=== PATIENT | male | born 1955 | race Caucasian/White ===

== ENCOUNTER 2018-06-01 09:33 | Emergency (ER) | payer OTHER, SELFPAY ==
[2018-06-01 09:37] VITALS: PULSE 73; RESP 16; TEMP 36.9; O2SAT 98
--- NOTE | 2018-06-01 10:19 | ED.GENADUL_ITS ---
Disposition Clinical Impression: Head injury, acute Disposition: HOME Condition: Good Instructions: Head Injury (ED) Additional Instructions: Return immediately if you begin having any neurological changes including numbness or tingling, weakness, severe dizziness, severe headache. Otherwise you may take gucv-[id number] pain medication as needed for pain control. Please take the remainder of the day and rest and slowly advance activity tomorrow as tolerated by discomfort. Referrals: Miguel Ángel Ku [Primary Care Provider] - (Follow-up with your primary care provider as needed for reassessment or if not improving over the next week. ) Forms: Work Release Medical Decision Making - Medical Decision Making Patient presenting to the emergency department after head injury. Patient states that a spring-loaded lunchroom table released the spring and hit his head. Exam is unremarkable except for some very small abrasions to the right ear and scalp which none are deep and nonbleeding. There are no signs of skull fracture on exam and patient only states mild headache of a 1. Neurological exam shows no neurological deficits. I do not feel that head CT is warranted but it appears that patient may have come to the emergency department due to 's concern and so due to this concern patient was offered a head CT but did discuss risks versus benefit of this testing which given benign exam and incident that occurred 2 hours ago with only minimal pain I do not feel that it would reveal any abnormalities. After discussion of risks versus benefit and my recommendation patient stated that he did not want a head CT at this time. Patient was agreeable to take the rest the day off and return for any new or worsening symptoms but I feel that this is a minor head injury and that all he will need is rest and pain control with [id number]-[id number] pain medications. After discussion of diagnosis and plan of care with patient patient agreed and stated no further needs, questions, or concerns at this time. History of Present Illness - General Chief complaint: HeadInjury Stated complaint: CONCUSSION? Time Seen by Provider: 06/01/18 10:17 Source: patient, RN notes reviewed Mode of arrival: ambulatory Limitations: no limitations - History of Present Illness Initial comments: Patient reports 2 hours ago he was at work working on a folding table that the spring excellently released and folded onto his head. He states he noted some slight scrapes and bleeding to his right ear but otherwise denies any loss of consciousness, amnesia, neurological deficits. He states he feels that his bowel got round but remembers the whole event and took a couple hours to rest. Onset/Timin -: hour(s) Location: head Severity scale (1-10): 1 Quality: aching Consistency: constant Improves with: none Worsens with: none Associated Symptoms: denies other symptoms Treatments Prior to Arrival: none - Related Data Aspirin [Ecotrin] 1 tab PO DAILY tab-cap 02/21/13 Blood-Glucose Control, Normal [Onetouch Verio] 1 strip MC BID #200 each Syringe W-Cannula,Disp, 3 ml [Syringe] 1 each MC BID #60 syringe 10/06/16 Syringe W-Cannula,Disp, 3 ml [Syringe] 1 each MC BID #200 syringe 03/21/17 Glipizide [Glipizide ER] 10 mg PO DAILY #90 tab-cap 07/06/17 Insulin Glargine [Lantus Solostar] 27 - 40 u SQ HS #15 pen 07/11/17 Pen Needle, Diabetic [Pen Needle] 1 each MC DAILY #100 ndl 07/11/17 Atorvastatin [Lipitor] 1 tab PO HS #90 tab-cap 07/12/17 Lisinopril 5 mg PO DAILY #90 tab-cap 07/12/17 MetFORMIN [Glucophage] 1 tab PO BID #180 tab-cap 07/12/17 Allergies Allergy/AdvReac Type Severity Reaction Status Date / Time No Known Allergies Allergy Unverified 06/01/18 09:40 Review of Systems Constitutional: denies: malaise, weakness Eyes: denies: eye pain, eye discharge, vision change ENT: as per HPI. denies: throat pain Respiratory: denies: cough, shortness of breath Cardiovascular: denies: chest pain, palpitations, syncope Gastrointestinal: denies: abdominal pain, nausea, vomiting Musculoskeletal: denies: back pain Neurological: headache (Very mild). denies: weakness, numbness, paresthesias, confusion, abnormal gait, vertigo Past Medical History - Past Medical History Medical history: diabetes, hyperlipidemia Surgical history: non-contributory Psychiatric history: depression Family history: cancer, diabetes - Social History Smoking status: never smoker Alcohol use: rarely Drug use: none Living Situation: lives with family General Exam - General Limitations: no limitations General appearance: alert, in no apparent distress - Head Head exam: Present: normocephalic - Expanded Head Exam No standard instances Head exam: Present: abrasion (Very small, nonbleeding to right temporal and parietal). Absent: laceration, contusion, hematoma, racoon eyes, bautista's sign , general tenderness, tenderness of temporal artery, CSF rhinorrhea, CSF otorrhea - Eye Eye exam: Present: normal apperance, PERRL, EOMI. Absent: scleral icterus, conjunctival injection, nystagmus, periorbital swelling, periorbital tenderness Pupils: Present: normal accommodation - ENT ENT exam: Present: normal orophraynx, mucous membranes moist, TM's normal bilaterally. Absent: normal external ear exam (Patient has 2 small superficial abrasions to right helix and lobe) - Neck Neck exam: Present: normal inspection, full ROM. Absent: tenderness - Respiratory Respiratory exam: Present: normal lung sounds bilaterally. Absent: respiratory distress, wheezes, rales, rhonchi, stridor, decreased breath sounds - Cardiovascular Cardiovascular Exam: Present: regular rate, normal rhythm, normal heart sounds - Neurological Exam Neurological exam: Present: alert, oriented X3, CN II-XII intact, normal gait. Absent: altered, motor sensory deficit - Expanded Neurological Exam No standard instances Neurological exam: Absent: memory loss-remote event, memory loss-recent event Patient oriented to: Present: person, place, time Speech: Present: fluid speech Cranial nerves: EOM's Intact: Normal, Gag Reflex: Normal, Tongue Deviation: Normal, Nystagmus: Normal, Facial Sensation: Normal, Facial Palsy with Forehead Movement: Normal, Facial Palsy without Forehead Movement: Normal Upper motor neuron: Tahir Neglect: Normal, Sensory Extinction: Normal Motor strength exam: RUE: (5), LUE: (5), RLE: (5), LLE: (5) Best Eye Response ([place]): (4) open spontaneously Best Motor Response ([place]): (6) obeys commands Best Verbal Response ([place]): (5) oriented - Skin Skin exam: Present: warm, dry, normal color Course Vital Signs - 24 hr 06/01/18 09:37 Temperature 36.9 C Pulse 73 Respiratory 16 Rate Pulse Oximetry 98
== END 2018-06-01 10:34 | disposition home or self-care (01) ==
PROVIDERS: Emergency Provider Student in an Organized Health Care Education/Training Program; PCP Family Medicine
DX: S09.90XA Unspecified injury of head, initial encounter (principal); S00.411A Abrasion of right ear, initial encounter; W20.8XXA Other cause of strike by thrown, projected or falling object, initial encounter; R40.2412 Glasgow coma scale score 13-15, at arrival to emergency department; Y99.0 Civilian activity done for income or pay; E11.9 Type 2 diabetes mellitus without complications; Z79.4 Long term (current) use of insulin
CPT/HCPCS: 99282

== ENCOUNTER 2018-06-02 09:46 | Outpatient (CLI) | payer BC, SELFPAY ==
[2018-06-05 09:29] LABS: PSA, Screening 0.8 ng/ml (0-4.5)
[2018-06-05 14:35] LABS: HCV RNA Detection Quantitative Undetected IU/mL (UNDECT)
[2018-06-06 13:54] LABS: Testosterone, Free 10.3 ng/dL (3.67-13.9); Testosterone, Total 382 ng/dL (240-950)
== END 2018-06-02 09:47 ==
PROVIDERS: PCP Family Medicine; Visit Provider Family Medicine
DX: N52.9 Male erectile dysfunction, unspecified (principal); B19.20 Unspecified viral hepatitis C without hepatic coma; Z12.5 Encounter for screening for malignant neoplasm of prostate
CPT/HCPCS: 36415; 84153; 84402; 84403; 87522

== ENCOUNTER 2018-08-11 06:59 | Day surgery (SDC) | payer BC, SELFPAY ==
[2018-08-11 07:23] VITALS: BP 148/95; PULSE 83; RESP 16; TEMP 35.8; O2SAT 98
[2018-08-11] MEDS: Lactated Ringers 1,000 ML 30 ML IV (08:00)
--- NOTE | 2018-08-11 09:19 | PDOC.DSDIS_ITS ---
Discharge Plan Disposition Patient Disposition: HOME Condition: Good Discharge Details Reason For Visit: SCREENING Attending Provider: Quang Huynh Primary Care Provider: Miguel Ángel Ku Home Meds and New Rx's Prescriptions: Continue insulin glargine 100 unit/mL (3 mL) insulin pen 26 unit SC HS RF: 0 aspirin [Ecotrin Low Strength] 81 MG tablet,delayed release (DR/EC) 1 tab PO DAILY RF: 0 blood glucose control, normal [OneTouch Verio Mid Control] 1 EACH solution 1 strip Miscellaneous BID Qty: 200 RF: 3 atorvastatin [Lipitor] 10 MG tablet 1 tab PO HS Qty: 90 RF: 3 glipizide 10 MG tablet extended release 24hr 10 mg PO DAILY Qty: 90 RF: 3 lisinopril 5 MG tablet 5 mg PO DAILY Qty: 90 RF: 3 pen needle, diabetic 1 EACH needle 1 ea Miscellaneous DAILY Qty: 100 RF: 4 metformin [Glucophage] 1,000 mg tablet 1,000 mg PO BID Qty: 180 RF: 3 Discontinued polyethylene glycol 3350 [ClearLax] 17 gram/dose powder 255 gm PO ONCE Qty: 255 RF: 0 bisacodyl [Bisa-Lax] 5 mg tablet,delayed release (DR/EC) 10 mg PO BID Qty: 4 RF: 0 Discharge Instructions Instructions: Colonoscopy (DC) Stand Alone Forms: Colonoscopy Post Instructions, Adarsh Lo (DSU) Activity:: Activity as Tolerated Diet:: As Tolerated Discharge Orders Discharge Orders: Discharge Order (Routine); Ordered 08/11/18 Ordered By: Quang Huynh DS: Diagnosis Discharge Diagnosis (1) Encounter for screening colonoscopy: Start date: 08/11/18 Start time: 09:18 Status: Acute Asessment and Plan: Colonoscopy performed Colonoscopy Report Pre-op diagnosis general: Colorectal Cancer screening Post-op diagnosis procedure note: other (Mild sigmoid diverticulosis) Procedure: Colonoscopy to the cecum Surgeon: Quang Huynh Anesthesia proc note operative: MAC (Bebe Aaron CRNA; ASA 2 Mallampati class II) Estimated blood loss (mL): 0 Pathology: none sent Complications: None Disposition: same day Indications: 53 y/o male with history of Type 2 DM presents for colonoscopy screening pre- op. His last screening was in 2012, which was unremarkable. He denies a family history of colon cancer. He denies any changes in bowel habits including bloody or black tarry stools, abdominal pain, diarrhea or constipation. He denies constitutional symptoms. Prep: Miralax/Dulcolax (Prep quality good) Findings: In examining the colon from cecum to anus, patient was noted to have some mild sigmoid diverticulosis but no other abnormalities were noted. Procedure Description: The patient was seen in the day surgery waiting area. His identification was confirmed, and procedure check. He was then brought to the procedure room. Monitoring for telemetry, blood pressure, oxygen saturation , and end tidal CO2 monitoring were applied. An appropriate time out was performed to confirm, identification, allergies, medication, procedure, was performed. Sedation was titrated for affect by the [employer]NA[employer]EVER[employer]; Once adequate sedation was achieved, I performed a inspection of the external perineum, and a digitial rectal examination. No significant external abnormalities were noted. On digital rectal examination, there was no blood, no masses, good rectal tone, and a normal prostate. I advanced the colonoscope from the anus to the cecum under direct visualization. The cecum was identified by the ileal-cecal valve, and the appendiceal orifice. The scope was then withdrawn in circumferential manner from the cecum to the rectum. There was some mild sigmoid diverticulosis, but no other abnormalities were noted of the colon. The scope was then withdrawn into the rectum, and retroflexed. No abnormalities were noted of the rectum or anorectal junction. The scope was then withdrawn, terminating the procedure. There were no complications during the procedure, and the patient tolerated the procedure well. He was returned to the day surgery recovery area in good condition. Plan: Will continue with routine screening for colorectal cancer according to current consensus guidelines, which is currently 10 years.
[2018-08-11 10:00] VITALS: BP 129/79; PULSE 74; RESP 18; TEMP 36; O2SAT 100
== END 2018-08-11 10:23 | disposition home or self-care (01) ==
PROVIDERS: PCP Family Medicine; Visit Provider Surgery
PROC: 0DJD8ZZ Inspection of Lower Intestinal Tract, Via Natural or Artificial Opening Endoscopic (ICD-10-PCS; CPT 45378; principal; 2018-08-11 08:15)
DX: Z12.11 Encounter for screening for malignant neoplasm of colon (principal); K57.30 Diverticulosis of large intestine without perforation or abscess without bleeding; Z86.010 Personal history of colon polyps; E11.9 Type 2 diabetes mellitus without complications; Z79.4 Long term (current) use of insulin; I10 Essential (primary) hypertension
CPT/HCPCS: 45378

== ENCOUNTER 2018-11-29 08:28 | Outpatient (CLI) | payer BC, SELFPAY ==
[2018-11-29 13:15] LABS: Cholesterol 116 mg/dL (50-200); HDL Cholesterol 32 mg/dL (40-60); LDL CHOLESTEROL 67 mg/dL (<100); Triglyceride 114 mg/dL (30-150)
== END 2018-11-29 08:48 ==
PROVIDERS: PCP Family Medicine; Visit Provider Family Medicine
DX: E11.9 Type 2 diabetes mellitus without complications (principal)
CPT/HCPCS: 36415; 80061; 83721; 83036

== ENCOUNTER 2019-06-06 11:53 | Outpatient (CLI) | payer BC, SELFPAY ==
[2019-06-06 13:06] LABS: CREATININE 0.89 mg/dL (0.70-1.30); Potassium 4.2 mmol/L (3.5-5.1)
[2019-06-06 13:34] LABS: Hemoglobin A1C 6.7 % (4.5-6.2)
== END 2019-06-06 12:13 ==
PROVIDERS: PCP Family Medicine; Visit Provider Family Medicine
DX: E11.9 Type 2 diabetes mellitus without complications (principal)
CPT/HCPCS: 36415; 82565; 83036; 84132

== ENCOUNTER 2019-12-04 08:33 | Outpatient (CLI) | payer BC, SELFPAY ==
[2019-12-04 11:09] LABS: Hemoglobin A1C 7.4 % (3.8-5.6)
[2019-12-04 11:35] LABS: COMMENT (LAB VIEW ONLY) 194.34 mg/dL; Microalb ug/mg Crea 11.9 ug/mg Cr
== END 2019-12-04 08:53 ==
PROVIDERS: PCP Family Medicine; Visit Provider Family Medicine
DX: E11.9 Type 2 diabetes mellitus without complications (principal); R73.9 Hyperglycemia, unspecified
CPT/HCPCS: 36415; 82043; 82570; 83036

== ENCOUNTER 2020-06-10 10:08 | Outpatient (CLI) | payer BC, MEDICARE, SELFPAY ==
[2020-06-10 13:09] LABS: CREATININE 0.76 mg/dL (0.70-1.30); Calculated LDL 62 mg/dL (<100); Cholesterol 123 mg/dL (<200); HDL Cholesterol 32 mg/dL (40-60); Potassium 4.6 mmol/L (3.5-5.1); Triglyceride 146 mg/dL (<150)
[2020-06-10 13:29] LABS: COMMENT (LAB VIEW ONLY) 219.84 mg/dL; Microalb ug/mg Crea 7.7 ug/mg Cr
[2020-06-11 12:33] LABS: Hemoglobin A1C 7.5 % (3.8-5.6)
== END 2020-06-10 10:28 ==
PROVIDERS: PCP Family Medicine; Visit Provider Family Medicine
DX: I10 Essential (primary) hypertension (principal); E78.5 Hyperlipidemia, unspecified; E11.65 Type 2 diabetes mellitus with hyperglycemia
CPT/HCPCS: 36415; 80061; 82043; 82565; 82570; 83036; 84132

== ENCOUNTER 2021-09-07 11:21 | Outpatient (CLI) | payer BC, SELFPAY ==
[2021-09-07 11:56] LABS: Abs Immature Grans 0.04 10^3/uL (0.0-0.06); Absolute Basophil Count 0.03 10^3/uL (0.0-0.2); Absolute Eosinophil Count 0.02 10^3/uL (0.0-0.7); Absolute Lymphocyte Count 0.79 10^3/uL (1.2-3.4); Absolute Monocyte Count 0.67 10^3/uL (0.1-0.8); Absolute Neutrophil Count 9.61 10^3/uL (1.2-6.7); Basophils % 0.3; Eosinophils % 0.2; HCT 45.7 % (40.0-50.0); Immature Grans % 0.4; Lymphocytes % 7.1; MCH 29.5 pg (27.0-33.0); MCHC 32.8 % (32.0-36.0); MPV 10.3 fL (8.0-11.0); Nucleated RBC 0 %; Platelet Count 156 10^3/uL (130-400); RBC 5.08 10^6/uL (4.36-5.78); RDW 12.2 % (11.8-14.1); RDW-SD 40.5 fL; WBC 11.17 10^3/uL (4.4-10.8)
[2021-09-07 12:48] LABS: ALT 29 U/L (16-63); AST 23 U/L (15-37); Albumin 3.7 g/dL (3.4-5.0); Alkaline Phosphatase 68 U/L (46-116); Anion Gap 11.8 mmol/L (3-11); BUN 27 mg/dL (7-18); Bilirubin, Total 0.5 mg/dL (0.2-1.0); CO2 26.2 mmol/L (21.0-32.0); Calcium 8.8 mg/dL (8.5-10.1); Chloride 96 mmol/L (98-107); Glucose 276 mg/dL (74-106); Potassium 3.7 mmol/L (3.5-5.1); Sodium 134 mmol/L (136-145); TSH (W/Ref FT4) 2.04 uIU/mL (0.36-3.74); Total Protein 7.4 g/dL (6.4-8.2)
[2021-09-08 11:27] LABS: Lyme Ab w Rflx to Lyme Confirm Negative (Negative)
[2021-09-09 06:15] LABS: Anaplasma phagocytophilum Negative (Negative); B. miyamotoi PCR Negative (Negative); Babesia divergens/MO-1 Negative (Negative); Babesia duncani Negative (Negative); Babesia microti Negative (Negative); Ehrlichia chaffeensis Negative (Negative); Ehrlichia ewingii/canis Negative (Negative); Ehrlichia muris eauclairensis Negative (Negative)
[2021-09-09 15:06] LABS: COVID-19 RT-PCR UVMMC Result Negative (Negative)
== END 2021-09-07 11:22 | disposition home or self-care (01) ==
LOC: LBO 11:23
PROVIDERS: PCP Family Medicine; Visit Provider Family Medicine
DX: E11.8 Type 2 diabetes mellitus with unspecified complications; Z20.822 Contact with and (suspected) exposure to COVID-19; R21 Rash and other nonspecific skin eruption; R11.10 Vomiting, unspecified; R19.7 Diarrhea, unspecified; R50.9 Fever, unspecified; I10 Essential (primary) hypertension
CPT/HCPCS: 36410; 80053; 87040; 87798; U0003; 83036; 84443; 85025; 86618

== ENCOUNTER 2021-09-08 16:21 | Outpatient (REF) | payer BC, SELFPAY ==
[2021-09-08 11:43] LABS: Bilirubin Negative (Negative); Blood Large (Negative); Clarity Clear (Clear); Glucose 500 mg/dL (Negative); Ketones 80 mg/dL (Negative); Leukocyte Esterase Negative (Negative); Nitrite Negative (Negative); Specific Gravity 1.025 (1.005-1.025); Urobilinogen 0.2 EU/dL (Up TO 0.2); pH 5.5 (5-8)
[2021-09-08 11:56] LABS: Bacteria Rare HPF (Negative); C & S Indicated? No; Casts Negative LPF (Negative); Crystals Negative HPF (Negative); Epithelial Cells Rare HPF (Negative); Mucus Moderate (Negative); WBC 0-2 HPF (0-5)
== END 2021-09-08 16:22 | disposition home or self-care (01) ==
LOC: LBN 16:21
PROVIDERS: PCP Family Medicine; Visit Provider Family Medicine
DX: E11.9 Type 2 diabetes mellitus without complications (principal)
CPT/HCPCS: 81003; 81015

== ENCOUNTER 2021-09-09 12:26 | Inpatient (IN) | payer BC, MEDICARE, SELFPAY ==
[2021-09-09 12:34] VITALS: BP 150/95; PULSE 97; RESP 18; O2SAT 99
--- NOTE | 2021-09-09 13:42 | W.ED.GENAD ---
Discharge Plan Disposition Condition: Good Discharge Details Chief Complaint: Fever Admit Date/Time: 09/09/21 14:41 Admit Provider: Daren Sandoval Attending Provider: Daren Sandoval Primary Care Provider: Miguel Ángel Ku ED Provider: William Milan Discharge Instructions Activity:: Activity as Tolerated Equipment/Supplies:: No Equipment Needed Diet:: Resume usual diet Discharge Orders Discharge Orders: Discharge Order (Routine); Ordered 09/11/21 Ordered By: Daren Sandoval Discharge Data Discharge Date/Time-TO BE ENTERED AT DEPARTURE: 09/09/21 15:36 Medical Decision Making 56-year-old male with multiple medical problem including insulin-dependent diabetes, here with facial rash, progressive, fever and myalgias. Patient also with oral thrush. Concern for facial cellulitis. Rash seems well demarcated with some scale on forehead. Right ear significantly inflamed. Consider fungal etiology vs staph infection. Labs reviewed and hyperglycemia noted. No acidosis. I will treat with insulin regular 4U. I have initiated broad-spectrum antibiotic coverage with vancomycin, cefazolin and fluconazole IV. Plan to admit for continued treatment of severe infection. HPI General Mode of arrival: ambulatory. Date/Time Provider Initiated Documentation: 09/09/21 13:11. Limitations to Documentation: no limitations. Information obtained by: patient. HPI Narrative: 56-year-old male with multiple medical problem including insulin-dependent diabetes, here with chief complaint of rash. Rash is localized to face right side of his face. Rash is red with associated swelling. Rash has been progressive over the past few days. He has associated fever and severe muscle aches. Patient denies tick bites. Related Data Home Medications Medication Instructions Recorded Confirmed blood glucose control, normal #200 ea 09/29/15 09/18/21 [OneTouch Verio Mid Control] adjuvant AS01B (PF)vial 1 of 2 0.5 ml IM DAILY #0.5 ml 06/10/20 09/18/21 pen needle, diabetic 29 gauge x #4 ea 04/13/21 09/18/21 1/2 atorvastatin 10 mg tablet 10 mg PO HS #90 tab-cap 06/12/21 09/18/21 glipizide 5 mg tablet, extended 5 mg PO DAILY #90 tab 06/12/21 09/18/21 release 24 hr insulin glargine 100 unit/mL (3 unit SC HS #45 ml 06/12/21 09/18/21 mL) subcutaneous pen lisinopril 10 mg tablet 10 mg PO DAILY #90 tab 06/12/21 09/18/21 metformin 1,000 mg tablet 1,000 mg PO BID #180 tab-cap 06/12/21 09/18/21 sertraline 100 mg tablet 200 mg PO DAILY #180 tab 06/12/21 09/18/21 Previous Rx's Medication Instructions Recorded adjuvant AS01B (PF)vial 1 of 2 0.5 ml IM DAILY #0.5 ml 06/10/20 pen needle, diabetic 29 gauge x #4 ea 04/13/21 1/ atorvastatin 10 mg tablet 10 mg PO HS #90 tab-cap 06/12/21 glipizide 5 mg tablet, extended 5 mg PO DAILY #90 tab 06/12/21 release 24 hr insulin glargine 100 unit/mL (3 28 unit SC HS #45 ml 06/12/21 mL) subcutaneous pen lisinopril 10 mg tablet 10 mg PO DAILY #90 tab 06/12/21 metformin 1,000 mg tablet 1,000 mg PO BID #180 tab-cap 06/12/21 sertraline 100 mg tablet 200 mg PO DAILY #180 tab 06/12/21 Allergies Allergy/AdvReac Type Severity Reaction Status Date / Time No Known Allergies Allergy Verified 09/18/21 11:21 General Stated Complaint: Fever DAVE: 3 Review of Systems All systems reviewed & are unremarkable except as noted in HPI and below Constitutional Constitutional: Reports fever(s) Integumentary/Breasts Skin/Breast: Reports as per HPI [facility] Active Problem List (Updated 09/18/21 @ 11:42 by Migule Ángel Ku MD) Cellulitis (Acute) Nocturnal hypoglycemia (Acute) Eczema (Acute) Hypertension (Chronic) Diabetes mellitus (Chronic) Well adult (Acute) Sigmoid diverticulosis (Acute) Type II diabetes mellitus with complication, uncontrolled (Acute) Polyp of colon (Acute 02/06/10) Increased BMI (Acute) 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) Hyperlipidemia (Acute 10/16/12) Essential hypertension (Acute 08/20/13) Depressive disorder (Acute 08/10/12) Bilateral carpal tunnel syndrome (Acute 05/17/17) Encounter for screening colonoscopy (Acute) Medical History (Updated 09/18/21 @ 11:42 by Miguel Ángel Ku MD) Colon polyp CTS (carpal tunnel syndrome) ED (erectile dysfunction) HTN (hypertension) Insulin-requiring or dependent type II diabetes mellitus Overweight Surgical History Colonoscopy - IV Sedation (02/23/13) 5 YR F/U H/O colonoscopy (08/11/18) Dr Huynh, negative, repeat in 10 years Family History Mother Essential hypertension Brain aneurysm Stroke Alcohol abuse Father , age 85 Diabetes Sister Depression Alcohol abuse Brother Diabetes Essential hypertension Hyperlipidemia Maternal Grandfather , age 67 Lung cancer Paternal Grandfather , age 67 Diabetes Maternal Grandmother , age 70+ Stroke Breast cancer Paternal Grandmother , age 85+ Diabetes Son No problems noted. Son No problems noted. Daughter No problems noted. Social History Smoking/Tobacco Use Status: Former Tobacco Use tobacco type: cigarettes and pipe Quit Date: 08/17/81 Tobacco: How many years used: 4 Second Hand Exposure: Yes Smoking risk assessment performed?: Yes Alcohol Intake: current Alcohol Intake frequency: 0-2 drinks per day Alcohol type: beer Drug use: Never Substance use type: does not use Caregiver/Support person: No Household members: spouse Housing: house Communication Needs: None and Corrective Lenses Do you need help understanding health information?: Rarely Pets and animals: Yes Pets and animals: cat(s) Sexually active: No Do you think of yourself as: straight/heterosexual Current gender identity: male What is your relationship status?: How often do you talk on the phone with friends or family?: once per week How often do you get together with friends or relatives?: decline to answer How often do you attend adventism or hinduism services?: 4 or more times per year Do you belong to any clubs or organized social groups?: no Panel score (0-1 are the most socially isolated patients): 2 What type of physical activity do you participate in: walking Duration: > 90 minutes/day Frequency: daily Iris/Orthodoxy: Shinto Special iris needs: No Seatbelt use: always Helmet use: Yes Helmet use: always Drive intox or ride w/intox car driver: No Do you feel safe at home: Yes Do you feel safe in your relationship?: Yes Exam Const General: cooperative and no acute distress HENMT Head: atraumatic Mouth: moist mucous membranes Eyes Conjunctivae: normal conjunctivae Sclera: normal sclerae Neck Neck: trachea midline and supple Resp Auscultation: clear to auscultation bilaterally, no rales, no rhonchi and no wheezes Cardio Rate: tachycardic Rhythm: regular rhythm Heart Sounds: no murmurs GI Palpation: soft, not firm, no guarding, no masses, not rigid and nontender Skin General skin exam: erythema Rashes: rashes noted (rt ear, face and forehead, forehead with demarcated redness and flaky) Neuro General: patient alert, patient awake, patient oriented x3 and tone normal Extrem General: no edema Psych Appearance: grossly normal Mental Status: mental status grossly normal Speech and Movement: speech and movement normal Course Vital Signs Vital signs: Vital Signs Pulse 97 H 09/09/21 12:34 Respiratory Rate 18 09/09/21 12:34 Blood Pressure 150/95 H 09/09/21 12:34 Pulse Oximetry 99 09/09/21 12:34 Pulse 97 H 09/09/21 12:34 Respiratory Rate 18 09/09/21 12:34 Respiratory Effort Non-Labored 09/09/21 12:38 Blood Pressure 150/95 H 09/09/21 12:34 Pulse Oximetry 99 09/09/21 12:34 Oxygen Delivery Method Room Air 09/09/21 12:34 Oxygen Flow Rate 0 09/09/21 12:34 Pain Level 1 09/09/21 12:34 Lab/Test Results Lab/Test Results: 09/09/21 13:12 Blood Blood Culture - Pending 09/09/21 13:12 Blood Blood Culture - Pending PAWSS Have you Been Recently Intoxicated or Drunk Within the Last 30 days?: No Have you Ever Experienced Previous Episodes of Alcohol Withdrawal?: No Have you ever Experienced Withdrawal Seizures?: No Have you ever Experienced Delirium Tremens(DT)s?: No Have you ever undergone Alcohol Rehabilitation Treatment (i.e, inpt ot outpatient treatment programs)?: No Have you ever Experienced Blackouts?: No Have you ever Combined Alcohol with other Downers within the last 90 days?: No Have you ever Combined Alcohol with any other Substance of Abuse during the last 90 days?: No Positive Blood Alcohol level on Presentation? [PCS.BAL]: No Evidence of Increased Autonomic Activity (i.e. HR>120, tremor, sweating, agitation, nausea)?: No Result: 0
[2021-09-09 14:03] LABS: Source Nasal/Nares
[2021-09-09 14:04] LABS: Abs Immature Grans 0.07 10^3/uL (0.0-0.06); Absolute Basophil Count 0.04 10^3/uL (0.0-0.2); Absolute Lymphocyte Count 1.49 10^3/uL (1.2-3.4); Absolute Monocyte Count 0.89 10^3/uL (0.1-0.8); Basophils % 0.3; Eosinophils % 1.5; HCT 44.1 % (40.0-50.0); HGB 14.8 g/dL (13.5-17.5); Immature Grans % 0.5; Lymphocytes % 11.4; MCH 29.8 pg (27.0-33.0); MCHC 33.6 % (32.0-36.0); MCV 88.9 fL (80-95); MPV 10.5 fL (8.0-11.0); Monocytes % 6.8; Neutrophils % 79.5; Nucleated RBC 0 %; Platelet Count 202 10^3/uL (130-400); RBC 4.96 10^6/uL (4.36-5.78); RDW 12.5 % (11.8-14.1); RDW-SD 41.1 fL; WBC 13.08 10^3/uL (4.4-10.8)
[2021-09-09 14:20] LABS: ALT 37 U/L (16-63); AST 26 U/L (15-37); Albumin 3.5 g/dL (3.4-5.0); Alkaline Phosphatase 90 U/L (46-116); Anion Gap 9.5 mmol/L (3-11); BUN 21 mg/dL (7-18); Bilirubin, Total 0.5 mg/dL (0.2-1.0); CO2 30.5 mmol/L (21.0-32.0); Calcium 9.2 mg/dL (8.5-10.1); Chloride 94 mmol/L (98-107); Glucose 240 mg/dL (74-106); Potassium 3.8 mmol/L (3.5-5.1); Sodium 134 mmol/L (136-145); Total Protein 8.4 g/dL (6.4-8.2)
[2021-09-09] MEDS: Normal Saline Flush 10 ML SYR IVP (15:30)
[2021-09-09] MEDS: VANCOMYCIN/WATER (PEG) 1.5 GM/300 ML BAG IVPB (15:30)
[2021-09-09] MEDS: FLUCONAZOLE 200 MG/100 ML BAG 100 MG IVPB (15:30)
[2021-09-09 15:31] VITALS: BP 130/81; PULSE 76; RESP 16; TEMP 37.6; O2SAT 96
[2021-09-09] MEDS: Insulin REGULAR-Human 100 UNITS/ML UNIT SC (15:31)
[2021-09-09] MEDS: Enoxaparin 40 MG/0.4 ML SYR SC (18:21)
[2021-09-09] MEDS: CEFEPIME 2 GM in Normal Saline 100 ML IVPB (18:21)
[2021-09-09] MEDS: metFORMIN 500 MG TAB 1000 MG PO (19:33)
--- NOTE | 2021-09-09 20:22 | W.PM.HP.N ---
Date of service: 09/09/21 Time of Service: 17:43 Assessment and Plan Assessment and plan (1) Type II diabetes mellitus with complication, uncontrolled: Status: Acute Assessment and plan: A1c of 9 on 09/07/21. Cont home meds: Glipizide, metformin, Lantus. Add SS insulin correction dosing. Consistent carb diet. Adjust as necessary (2) Hyperlipidemia: Status: Acute Assessment and plan: Cont Atorvastatin (3) Essential hypertension: Status: Acute Assessment and plan: Cont his home low dose lisinopril 10mg daily. Monitor. (4) Depressive disorder: Status: Acute Assessment and plan: Cont Sertraline. (5) Cellulitis: Status: Acute Assessment and plan: This does appear to be more streptococcal in appearance and distribution. Improving. Initiated cefepime on admission. Given his poorly controlled diabetes and appearance of thrush, continue fluconazole 200mg IV daily. Also getting vancomycin. MRSA screen order. Staph etiology less likely. Methylprednisolone 40mg IV x2 doses today for the swelling of the R ear. Blood cxs pending. History of Present Illness History of Present Illness Chief Complaint: Rash Narrative: This is a 66 yo male with a PMH of DM2/req. insulin, HTN, HLD, depressive disorder, eczema. He presented with a rash across the forehead, the right side of his face and his right ear. He endorsed appx 1 week of intermittent fevers, nausea/vomiting. He was seen on 09/07 at his PCP office initially when the rash was only on the forehead. It was dx'd as cellulitis-erysipelas possibly and he was started on cephalexin 500mg TID. He continued to have fevers and the area of redness enlarged to include the right side of the face and his ear. He also complained of myalgias. His WBC count on 09/07 was 11.17. It was 13.09 on presentation to the ED. Creatinine 1.0. COVID-19 negative. He was dx'd with a cellulitis with a differential that included fungal etiology given he is a diabetic. Pseudomonas also a possibility. However, streptococcal etiology is most likely. A doses of cefazolin, vancomycin and fluconazole IV were given in the ED. He was admitted for further treatment. 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) Hyperlipidemia (Acute 10/16/12) Essential hypertension (Acute 08/20/13) Depressive disorder (Acute 08/10/12) Bilateral carpal tunnel syndrome (Acute 05/17/17) Encounter for screening colonoscopy (Acute) Medical History Colon polyp CTS (carpal tunnel syndrome) ED (erectile dysfunction) Hepatitis C HTN (hypertension) Insulin-requiring or dependent type II diabetes mellitus Overweight Surgical History Colonoscopy - IV Sedation (02/23/13) 5 YR F/U H/O colonoscopy (08/11/18) Dr Huynh, negative, repeat in 10 years Family History Mother Essential hypertension Brain aneurysm Stroke Alcohol abuse Father , age 85 Diabetes Sister Depression Alcohol abuse Brother Diabetes Essential hypertension Hyperlipidemia Maternal Grandfather , age 67 Lung cancer Paternal Grandfather , age 67 Diabetes Maternal Grandmother , age 70+ Stroke Breast cancer Paternal Grandmother , age 85+ Diabetes Son No problems noted. Son No problems noted. Daughter No problems noted. Social History Smoking/Tobacco Use Status: Former Tobacco Use tobacco type: cigarettes and pipe Quit Date: 08/17/81 Tobacco: How many years used: 4 Second Hand Exposure: Yes Smoking risk assessment performed?: Yes Alcohol Intake: current Alcohol Intake frequency: 0-2 drinks per day Alcohol type: beer Drug use: Never Substance use type: does not use Caregiver/Support person: No Household members: spouse Housing: house Communication Needs: None and Corrective Lenses Do you need help understanding health information?: Rarely Pets and animals: Yes Pets and animals: cat(s) Sexually active: No Do you think of yourself as: straight/heterosexual Current gender identity: male What is your relationship status?: How often do you talk on the phone with friends or family?: once per week How often do you get together with friends or relatives?: decline to answer How often do you attend roman catholic or church services?: 4 or more times per year Do you belong to any clubs or organized social groups?: no Panel score (0-1 are the most socially isolated patients): 2 What type of physical activity do you participate in: walking Duration: > 90 minutes/day Frequency: daily Iris/Restorationism: Confucianism Special iris needs: No Seatbelt use: always Helmet use: Yes Helmet use: always Drive intox or ride w/intox 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 Do you feel safe at home: Yes Do you feel safe in your relationship?: Yes Meds Allergies and Home Medications Allergies Allergy/AdvReac Type Severity Reaction Status Date / Time No Known Allergies Allergy Verified 09/09/21 12:38 Home Medications Medication Instructions Recorded Confirmed Type blood glucose control, normal #200 ea 09/29/15 09/09/21 History [OneTouch Verio Mid Control] adjuvant AS01B (PF)vial 1 of 2 0.5 ml IM DAILY #0.5 ml 06/10/20 09/09/21 Rx pen needle, diabetic 29 gauge x #4 ea 04/13/21 09/09/21 Rx 1/2 atorvastatin 10 mg tablet 10 mg PO HS #90 tab-cap 06/12/21 09/09/21 Rx glipizide 5 mg tablet, extended 5 mg PO DAILY #90 tab 06/12/21 09/09/21 Rx release 24 hr insulin glargine 100 unit/mL (3 28 unit SC HS #45 ml 06/12/21 09/09/21 Rx mL) subcutaneous pen lisinopril 10 mg tablet 10 mg PO DAILY #90 tab 06/12/21 09/09/21 Rx metformin 1,000 mg tablet 1,000 mg PO BID #180 tab-cap 06/12/21 09/09/21 Rx sertraline 100 mg tablet 200 mg PO DAILY #180 tab 06/12/21 09/09/21 Rx cephalexin 500 mg capsule 500 mg PO TID #21 cap 09/08/21 09/09/21 Rx Exam Const General: cooperative and no acute distress Nutritional Appearance: overweight Orientation: alert and oriented x3 HENMT Head: normocephalic and atraumatic Eyes General: appearance normal, both eyes and all related structures Sclera: sclerae normal Pupils: PERRL Resp Effort & Inspection: normal respiratory effort Auscultation: clear to auscultation bilaterally Cardio Rate: regular rate Rhythm: regular rhythm Heart Sounds: S1 normal and S2 normal GI Palpation: soft and nontender Auscultation: normal bowel sounds Skin Full body images: 1. Decreased erythema of the forehead with some areas of clearing. R side of face with less intense erythema. Ear with erythema and ongoing swelling. No lesions. Neuro General: no focal motor deficits Cognition: normal cognition Speech: speech normal Extrem General: no pedal edema and no calf tenderness Psych Appearance: grossly normal Mental Status: mental status grossly normal Speech and Movement: speech and movement normal Affect: normal affect Results Labs Result diagrams: 09/10/21 05:15 09/10/21 05:15 Labs: Laboratory Results - last 24 hr 09/09/21 09/09/21 09/09/21 13:55 13:55 13:55 WBC 13.08 H RBC 4.96 Hgb 14.8 Hct 44.1 MCV 88.9 MCH 29.8 MCHC 33.6 RDW 12.5 Plt Count 202 MPV 10.5 Immature Gran % 0.5 Neutrophils % 79.5 Lymphocytes % 11.4 Monocytes % 6.8 Eosinophils % 1.5 Basophils % 0.3 Nucleated RBC % 0 Absolute Neutrophils 10.40 H Absolute Lymphocytes 1.49 Absolute Monocytes 0.89 H Absolute Eosinophils 0.20 Absolute Basophils 0.04 VBG Lactate 1.0 Sodium 134 L Potassium 3.8 Chloride 94 L Carbon Dioxide 30.5 Anion Gap 9.5 BUN 21 H D Creatinine 1.0 Estimated GFR/1.73 m2 >= 60.00 Glucose 240 H Calcium 9.2 Total Bilirubin 0.5 AST 26 ALT 37 Alkaline Phosphatase 90 Total Protein 8.4 H Albumin 3.5 COVID-19 Source 09/09/21 13:55 WBC RBC Hgb Hct MCV MCH MCHC RDW Plt Count MPV Immature Gran % Neutrophils % Lymphocytes % Monocytes % Eosinophils % Basophils % Nucleated RBC % Absolute Neutrophils Absolute Lymphocytes Absolute Monocytes Absolute Eosinophils Absolute Basophils VBG Lactate Sodium Potassium Chloride Carbon Dioxide Anion Gap BUN Creatinine Estimated GFR/1.73 m2 Glucose Calcium Total Bilirubin AST ALT Alkaline Phosphatase Total Protein Albumin COVID-19 Source Nasal/Nares Last Vital Signs Temp 37.6 C H 09/09/21 15:31 Pulse 76 09/09/21 15:31 Resp 16 09/09/21 15:31 BP 130/81 09/09/21 15:31 Pulse Ox 96 09/09/21 15:31 PAWSS Have you Been Recently Intoxicated or Drunk Within the Last 30 days?: No Have you Ever Experienced Previous Episodes of Alcohol Withdrawal?: No Have you ever Experienced Withdrawal Seizures?: No Have you ever Experienced Delirium Tremens(DT)s?: No Have you ever undergone Alcohol Rehabilitation Treatment (i.e, inpt ot outpatient treatment programs)?: No Have you ever Experienced Blackouts?: No Have you ever Combined Alcohol with other Downers within the last 90 days?: No Have you ever Combined Alcohol with any other Substance of Abuse during the last 90 days?: No Positive Blood Alcohol level on Presentation? [PCS.BAL]: No Evidence of Increased Autonomic Activity (i.e. HR>120, tremor, sweating, agitation, nausea)?: No Result: 0
[2021-09-09 20:23] LABS: COVID-19 PCR Negative (Negative)
[2021-09-09] MEDS: Atorvastatin 10 MG TAB PO (21:59)
[2021-09-09] MEDS: Insulin Glargine 300 UNITS/3 ML PEN 28 UNITS SC (22:00)
[2021-09-09] MEDS: VANCOMYCIN/WATER (PEG) 1.25 GM/250 ML BAG IV (23:43)
[2021-09-10 00:01] VITALS: BP 106/68; PULSE 88; RESP 18; TEMP 36.8; O2SAT 97
[2021-09-10] MEDS: CEFEPIME 2 GM in Normal Saline 100 ML IVPB ×3 (01:22→17:14)
[2021-09-10] MEDS: Acetaminophen 325 MG TAB PO (03:37)
[2021-09-10 05:39] LABS: Abs Immature Grans 0.04 10^3/uL (0.0-0.06); Absolute Basophil Count 0.05 10^3/uL (0.0-0.2); Absolute Lymphocyte Count 1.81 10^3/uL (1.2-3.4); Absolute Monocyte Count 0.83 10^3/uL (0.1-0.8); Absolute Neutrophil Count 6.97 10^3/uL (1.2-6.7); Basophils % 0.5; HCT 39.7 % (40.0-50.0); HGB 13.3 g/dL (13.5-17.5); Immature Grans % 0.4; Lymphocytes % 18.1; MCH 29.4 pg (27.0-33.0); MCHC 33.5 % (32.0-36.0); MCV 87.8 fL (80-95); MPV 10.7 fL (8.0-11.0); Monocytes % 8.3; Neutrophils % 69.7; Nucleated RBC 0 %; Platelet Count 197 10^3/uL (130-400); RBC 4.52 10^6/uL (4.36-5.78); RDW 12.7 % (11.8-14.1); RDW-SD 40.8 fL
[2021-09-10 05:50] LABS: Anion Gap 6.9 mmol/L (3-11); BUN 20 mg/dL (7-18); CO2 29.1 mmol/L (21.0-32.0); CREATININE 0.9 mg/dL (0.70-1.30); Calcium 8.4 mg/dL (8.5-10.1); Chloride 103 mmol/L (98-107); Glucose 227 mg/dL (74-106); Magnesium 2.2 mg/dL (1.8-2.4); Sodium 139 mmol/L (136-145)
[2021-09-10 07:41] VITALS: BP 135/81; PULSE 69; RESP 16; TEMP 36.7; O2SAT 98
[2021-09-10] MEDS: metFORMIN 500 MG TAB 1000 MG PO ×2 (08:00→19:55)
[2021-09-10] MEDS: Sertraline 50 MG TAB 200 MG PO (08:23)
[2021-09-10] MEDS: glipiZIDE C.R. 5 MG TABCR PO (08:24)
[2021-09-10] MEDS: Lisinopril 10 MG TAB PO (08:24)
[2021-09-10] MEDS: Insulin Aspart 300 UNITS/3 ML PEN SC ×3 (08:26→17:14)
[2021-09-10] MEDS: FLUCONAZOLE 200 MG/100 ML BAG 100 MG IVPB (09:08)
[2021-09-10] MEDS: VANCOMYCIN/WATER (PEG) 1.25 GM/250 ML BAG IV ×2 (09:09→19:55)
[2021-09-10] MEDS: methylPREDNISolone SUCC 40 MG VIAL IVP ×2 (12:54→17:14)
[2021-09-10] MEDS: Normal Saline Flush 10 ML SYR IVP ×2 (12:55→19:57)
[2021-09-10] MEDS: Enoxaparin 40 MG/0.4 ML SYR SC (17:14)
[2021-09-10 19:20] VITALS: BP 153/88; PULSE 74; RESP 16; TEMP 36.6; O2SAT 95
[2021-09-10] MEDS: Atorvastatin 10 MG TAB PO (21:52)
[2021-09-10] MEDS: Insulin Glargine 300 UNITS/3 ML PEN 35 UNITS SC (21:53)
[2021-09-10 23:19] VITALS: BP 111/88; PULSE 76; RESP 18; TEMP 36.5; O2SAT 96
[2021-09-11] MEDS: CEFEPIME 2 GM in Normal Saline 100 ML IVPB (01:34)
[2021-09-11 05:57] LABS: Vancomycin, Trough 15.3 ug/mL (10.0-20.0)
[2021-09-11] MEDS: Normal Saline Flush 10 ML SYR IVP (06:15)
[2021-09-11] MEDS: VANCOMYCIN/WATER (PEG) 1.25 GM/250 ML BAG IV (06:15)
[2021-09-11 07:38] VITALS: BP 137/83; PULSE 66; RESP 18; TEMP 35.9; O2SAT 96
[2021-09-11] MEDS: metFORMIN 500 MG TAB 1000 MG PO (08:05)
[2021-09-11] MEDS: Sertraline 50 MG TAB 200 MG PO (08:05)
--- NOTE | 2021-09-11 08:05 | W.PM.DS.N ---
Date of service: 09/11/21 Time of Service: 08:06 DS: Diagnosis Discharge Diagnosis (1) Type II diabetes mellitus with complication, uncontrolled: Status: Acute (2) Hyperlipidemia: Status: Acute (3) Essential hypertension: Status: Acute (4) Depressive disorder: Status: Acute (5) Cellulitis: Status: Acute Discharge Plan Disposition Patient Disposition: HOME Condition: Good Discharge Details Reason For Visit: Facial Cellulitis,Hyperglycemia,Thrush Admit Date/Time: 09/09/21 14:41 Admit Provider: Daren Sandoval Attending Provider: Daren Sandoval Primary Care Provider: Miguel Ángel Ku Hospital Course Hospital Course: This is a 66 yo male with a PMH of DM2/req. insulin, HTN, HLD, depressive disorder, eczema. He presented with a rash across the forehead, the right side of his face and his right ear. He endorsed appx 1 week of intermittent fevers, nausea/vomiting. He was seen on 09/07 at his PCP office initially when the rash was only on the forehead. It was dx'd as cellulitis-erysipelas possibly and he was started on cephalexin 500mg TID. He continued to have fevers and the area of redness enlarged to include the right side of the face and his ear. He also complained of myalgias. His WBC count on 09/07 was 11.17. It was 13.09 on presentation to the ED. Creatinine 1.0. COVID-19 negative. He was dx'd with a cellulitis with a differential that included fungal etiology given he is a diabetic. Pseudomonas also a possibility. However, streptococcal etiology is most likely. A doses of cefazolin, vancomycin and fluconazole IV were given in the ED. He was admitted for further treatment. No purulent lesions, vesicles or nodules were noted. His entire R ear was swollen. The redness involved the entire forehead and his R cheek and judaism and his right ear. The following day the redness was fading, particularly on the forehead. Some desquamation of the forehead was noted. IV solu-medrol initiated and the ear swelling improved / nearly resolved. He will d/c on doxycycline 100mg BID for 7 days and diflucan 200mg daily for 5 days. He does describe what sounds to be chronic seborrhea of the scalp and eyebrows. I suggested nizoral shampoo to those area weekly. His hemoglobin A1c on 09/07/21 was 9.0. His glucose readings were elevated in the upper 100's to 200's predominantly. A reading of 368 noted on one occasion. His home glipizide, metformin and lantus were initially administered. The lantus was increased for the HS dose the night before discharge. He was also on a sliding scale insulin correction dosing schedule. Follow up with PCP in 1 week. Call PCP if rash worsens or other symptoms recur. Home Meds and New Rx's Prescriptions: New fluconazole 100 mg Tablet 200 mg PO DAILY Qty: 5 RF: 0 doxycycline hyclate 100 mg capsule 100 mg PO BID Qty: 14 RF: 0 Continued atorvastatin [Lipitor] 10 mg tablet 10 mg PO HS Qty: 90 RF: 3 glipizide 5 mg tablet extended release 24hr 5 mg PO DAILY Qty: 90 RF: 3 insulin glargine 100 unit/mL (3 mL) insulin pen 28 unit SC HS Qty: 45 RF: 3 lisinopril 10 mg tablet 10 mg PO DAILY Qty: 90 RF: 3 metformin 1,000 mg tablet 1,000 mg PO BID Qty: 180 RF: 3 sertraline 100 mg tablet 200 mg PO DAILY Qty: 180 RF: 3 Shingrix Adjuvant Component-PF Suspension 0.5 ml IM DAILY Qty: 0.5 RF: 1 (DME) blood glucose control, normal [OneTouch Verio Mid Control] 1 EACH solution 1 strip Miscellaneous BID Qty: 200 RF: 3 (DME) pen needle, diabetic 29 gauge x 1/2 needle 1 ea Miscellaneous DAILY Qty: 4 RF: 0 Discontinued cephalexin 500 mg capsule 500 mg PO TID Qty: 21 RF: 0 Discharge Instructions Instructions: Cellulitis (DC) Stand Alone Forms: Nursing Discharge Form Referrals: Miguel Ángel Ku MD [Primary Care Provider] - 09/18/21 11:20 am Activity:: Activity as Tolerated Equipment/Supplies:: No Equipment Needed Diet:: Resume usual diet Discharge Orders Discharge Orders: Discharge Order (Routine); Ordered 09/11/21 Ordered By: Daren Sandoval Discharge Data Discharge Date/Time-TO BE ENTERED AT DEPARTURE: 09/11/21 09:21 DS: Summary Time Spent with Patient providing and/or coordinating discharge services: Greater than 30 minutes Status at Discharge Functional status at discharge: independent ambulation Overall status at discharge: patient is progressing back to baseline Mental Status: mental status grossly normal Speech and Movement: speech and movement normal Mood: congruent mood Affect: normal affect Exam Psych Mental Status: mental status grossly normal Speech and Movement: speech and movement normal Mood: congruent mood Affect: normal affect DS: Data Vitals/I&O Vitals and I&O: Vital Signs Temperature 35.9 C L 09/11/21 07:38 Temperature Source Tympanic 09/11/21 07:38 Pulse 66 09/11/21 07:38 Pulse Rhythm Regular 09/11/21 02:11 Respiratory Rate 18 09/11/21 07:38 Respiratory Effort 09/11/21 02:11 Respiratory Depth Normal 09/11/21 02:11 Respiratory Pattern Normal 09/11/21 02:11 Blood Pressure 137/83 09/11/21 07:38 Pulse Oximetry 96 09/11/21 07:38 Oxygen Delivery Method Room Air 09/11/21 07:38 Oxygen Flow Rate 0 09/11/21 07:38 Pain Level 0 09/11/21 07:38 Intake & Output 09/10/21 09/10/21 09/11/21 11:59 23:59 11:59 Intake Total 910 / 2160 1250 / 2160 100 / 100 Output Total 600 / 600 Balance 910 / 1560 650 / 1560 100 / 100 Weight 88.677 kg Intake: IV 700 / 1150 450 / 1150 100 / 100 Oral 210 / 1010 800 / 1010 Output: Urine 600 / 600 Other: Urine Color Yellow Urine Appearance Clear Clear Clear Comment uses the toilet independently uses the toilet independently uses the toilet independently Voiding Methods Toilet Toilet Toilet Data Completed and Pending Labs on day of discharge: Labs from last 24 hours 09/11/21 05:15 Vancomycin Trough 15.3 09/10/21 18:00 Nose MRSA Screen - Pending 09/09/21 20:23 Face - Not Specified Skin Culture - Pending Preliminary micro results at discharge 09/10/21 18:00 MRSA Screen - Pending Nose 09/09/21 14:35 Blood Culture - Preliminary Blood NO GROWTH 24 HOURS 09/09/21 13:55 Blood Culture - Preliminary Blood NO GROWTH 24 HOURS 09/09/21 20:23 Skin Culture - Pending Face - Not Specified [facility] Active Problem List Nocturnal hypoglycemia (Acute) Eczema (Acute) Hypertension (Chronic) Diabetes mellitus (Chronic) Well adult (Acute) Sigmoid diverticulosis (Acute) Type II diabetes mellitus with complication, uncontrolled (Acute) Polyp of colon (Acute 02/06/10) Increased BMI (Acute) 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) Hyperlipidemia (Acute 10/16/12) Essential hypertension (Acute 08/20/13) Depressive disorder (Acute 08/10/12) Bilateral carpal tunnel syndrome (Acute 05/17/17) Encounter for screening colonoscopy (Acute) Medical History Colon polyp CTS (carpal tunnel syndrome) ED (erectile dysfunction) Hepatitis C HTN (hypertension) Insulin-requiring or dependent type II diabetes mellitus Overweight Surgical History Colonoscopy - IV Sedation (02/23/13) 5 YR F/U H/O colonoscopy (08/11/18) Dr Huynh, negative, repeat in 10 years Family History Mother Essential hypertension Brain aneurysm Stroke Alcohol abuse Father , age 85 Diabetes Sister Depression Alcohol abuse Brother Diabetes Essential hypertension Hyperlipidemia Maternal Grandfather , age 67 Lung cancer Paternal Grandfather , age 67 Diabetes Maternal Grandmother , age 70+ Stroke Breast cancer Paternal Grandmother , age 85+ Diabetes Son No problems noted. Son No problems noted. Daughter No problems noted. Social History Smoking/Tobacco Use Status: Former Tobacco Use tobacco type: cigarettes and pipe Quit Date: 08/17/81 Tobacco: How many years used: 4 Second Hand Exposure: Yes Smoking risk assessment performed?: Yes Alcohol Intake: current Alcohol Intake frequency: 0-2 drinks per day Alcohol type: beer Drug use: Never Substance use type: does not use Caregiver/Support person: No Household members: spouse Housing: house Communication Needs: None and Corrective Lenses Do you need help understanding health information?: Rarely Pets and animals: Yes Pets and animals: cat(s) Sexually active: No Do you think of yourself as: straight/heterosexual Current gender identity: male What is your relationship status?: How often do you talk on the phone with friends or family?: once per week How often do you get together with friends or relatives?: decline to answer How often do you attend holiness or islam services?: 4 or more times per year Do you belong to any clubs or organized social groups?: no Panel score (0-1 are the most socially isolated patients): 2 What type of physical activity do you participate in: walking Duration: > 90 minutes/day Frequency: daily Iris/Adventist: Evangelical Special iris needs: No Seatbelt use: always Helmet use: Yes Helmet use: always Drive intox or ride w/intox concrete mixing truck driver: No Do you feel safe at home: Yes Do you feel safe in your relationship?: Yes
[2021-09-11] MEDS: Lisinopril 10 MG TAB PO (08:06)
[2021-09-11] MEDS: glipiZIDE C.R. 5 MG TABCR PO (08:06)
[2021-09-11] MEDS: Insulin Aspart 300 UNITS/3 ML PEN SC (08:06)
--- NOTE | 2021-09-11 08:10 | PDOC.CMIN ---
- If Service Date Differs Date of service: 09/11/21 Time of Service: 08:10 Care Management Initial Assess REASON FOR HOSPITALIZATION:: Facial cellulitis, hyperglycemia
[2021-09-11] MEDS: Fluconazole 100 MG TAB 200 MG PO (09:00)
[2021-09-11] MEDS: predniSONE 20 MG TAB PO (09:00)
--- NOTE | 2021-09-11 12:21 | PDOC.CMPRO ---
- If Service Date Differs Date of service: 09/11/21 Time of Service: 12:21 Care Management Progress Note Asif is a 66 year old man admitted on 09/09/21 with facial cellulitis. He was treated with antibiotics, antifungal medication and steroids. He improved and is ready for discharge. CM was unable to meet with him before discharge. He will go home on Doxycycline 100mg po bid and follow up with his PCP.
== END 2021-09-11 09:21 | disposition home or self-care (01) | DRG 638 ==
LOC: ER 12:44 → MS 15:42
PROVIDERS: Admitting Provider Family Medicine; Emergency Provider Student in an Organized Health Care Education/Training Program; PCP Family Medicine; Visit Provider Family Medicine
DX: E11.65 Type 2 diabetes mellitus with hyperglycemia (principal); L03.211 Cellulitis of face; B37.0 Candidal stomatitis; I10 Essential (primary) hypertension; E78.5 Hyperlipidemia, unspecified; F32.A Depression, unspecified; Z79.4 Long term (current) use of insulin; L30.9 Dermatitis, unspecified; A46 Erysipelas; H62.41 Otitis externa in other diseases classified elsewhere, right ear; B95.8 Unspecified staphylococcus as the cause of diseases classified elsewhere; K57.30 Diverticulosis of large intestine without perforation or abscess without bleeding; Z23 Encounter for immunization
CPT/HCPCS: 36415; 80048; 80053; 87040; 87081; 87635; 90662; 96372; 96374; 96375; 99285; J1650; 80202; 83605; 83735; 85025; 87070; 99222; 99239; 99284; J1450; J7512

== ENCOUNTER 2022-10-19 04:12 | Outpatient (CLI) | payer BC, SELFPAY ==
[2022-10-19 12:41] LABS: CREATININE 0.9 mg/dL (0.70-1.30); Calculated LDL 87 mg/dL (<100); Cholesterol 151 mg/dL (<200); Estimated GFR 93.61 (mL/min/1.73m2); HDL Cholesterol 40 mg/dL (40-60); Potassium 3.7 mmol/L (3.5-5.1); Triglyceride 123 mg/dL (<150)
== END 2022-10-19 04:13 | disposition home or self-care (01) ==
LOC: LOS 04:12
PROVIDERS: PCP Family Medicine; Visit Provider Family Medicine
DX: I10 Essential (primary) hypertension (principal); E78.5 Hyperlipidemia, unspecified
CPT/HCPCS: 36415; 80061; 82565; 84132

== ENCOUNTER 2022-10-20 09:49 | Outpatient (REF) | payer BC, SELFPAY ==
[2022-10-20 13:19] LABS: COMMENT (LAB VIEW ONLY) 203.01 mg/dL; Microalb ug/mg Crea 8.5 ug/mg Cr
== END 2022-10-20 09:50 | disposition home or self-care (01) ==
LOC: LBN 09:49
PROVIDERS: PCP Family Medicine; Visit Provider Family Medicine
DX: E11.9 Type 2 diabetes mellitus without complications (principal)
CPT/HCPCS: 82043; 82570

== ENCOUNTER → 2023-09-14 22:25 | Outpatient (CLI) | payer OTHER, BC, SELFPAY ==
--- NOTE | 2023-09-14 14:45 | DI.RAD_ITS ---
Exam(s) XR FOOT RT COMPLETE EXAM: XR FOOT RT COMPLETE CLINICAL HISTORY: evaluate pathology M79.671 PAIN RT FOOT. TECHNIQUE: 2D digital imaging was performed of the right foot. Three images were obtained. AP, obl ique and lateral views were obtained. COMPARISON: No exams were available for comparison FINDINGS: BONES: There is a mildly displaced oblique fracture of the right 5th metatarsal bone. No bony destru ctive lesion is seen. There is plantar calcaneal spur. JOINTS: No dislocation present. Mild degenerative changes are seen at the 1st MTP joint. SOFT TISSUE: Normal. IMPRESSION: Acute mildly displaced fracture of the 5th metatarsal bone. DATA REPOSITORY: RADIATION DOSE DELIVERED:
== END ==
PROVIDERS: PCP Family Medicine; Visit Provider Nurse Practitioner Family
DX: S92.351A Displaced fracture of fifth metatarsal bone, right foot, initial encounter for closed fracture (principal); X58.XXXA Exposure to other specified factors, initial encounter
CPT/HCPCS: 73630

== ENCOUNTER 2023-09-30 11:26 | Outpatient (CLI) | payer OTHER, SELFPAY ==
--- NOTE | 2023-09-30 10:45 | DI.RAD_ITS ---
Exam(s) XR FOOT RT COMPLETE EXAM: XR FOOT RT COMPLETE CLINICAL HISTORY: F/U 5TH METATARSAL FRACTURE. TECHNIQUE: 2D digital imaging was performed. Three views. COMPARISON: CR XR FOOT RT COMPLETE from 09/14/2023 FINDINGS: There has been no change in the alignment of the 5th metatarsal fracture. DATA REPOSITORY: RADIATION DOSE DELIVERED:
== END 2023-09-30 11:27 | disposition home or self-care (01) ==
LOC: DIORS 11:26
PROVIDERS: PCP Family Medicine; Visit Provider Student in an Organized Health Care Education/Training Program
DX: S92.351D Displaced fracture of fifth metatarsal bone, right foot, subsequent encounter for fracture with routine healing (principal); X58.XXXD Exposure to other specified factors, subsequent encounter
CPT/HCPCS: 73630

== ENCOUNTER 2023-10-21 09:25 | Outpatient (CLI) | payer OTHER, SELFPAY ==
--- NOTE | 2023-10-21 08:00 | DI.RAD_ITS ---
Exam(s) XR FOOT RT COMPLETE EXAM: XR FOOT RT COMPLETE CLINICAL HISTORY: F/U 5TH METATARSAL FX R FT. TECHNIQUE: 2D digital imaging was performed of the right foot. Three images were obtained. AP, obl ique and lateral views were obtained. COMPARISON: CR XR FOOT RT COMPLETE from 09/14/2023 CR XR FOOT RT COMPLETE from 09/30/2023 FINDINGS: BONES: There is no change in alignment of the oblique fracture of the 5th metatarsal. Callus formati on has developed about the fracture site suggesting some interval healing. There is adjacent soft ti ssue swelling. No new fracture. No bony destructive lesion is seen. There is a large plantar calcan eal spur. JOINTS: No dislocation present. Mild arthrosis of the foot. SOFT TISSUE: Normal. IMPRESSION: Stable alignment of a healing 5th metatarsal fracture. DATA REPOSITORY: RADIATION DOSE DELIVERED:
== END 2023-10-21 09:26 | disposition home or self-care (01) ==
LOC: DIORS 09:26
PROVIDERS: PCP Family Medicine; Visit Provider Physician Assistant
DX: S92.351D Displaced fracture of fifth metatarsal bone, right foot, subsequent encounter for fracture with routine healing (principal); X58.XXXD Exposure to other specified factors, subsequent encounter
CPT/HCPCS: 73630

== ENCOUNTER 2023-12-02 09:07 | Outpatient (CLI) | payer OTHER, SELFPAY ==
--- NOTE | 2023-12-02 09:12 | DI.RAD_ITS ---
Exam(s) XR FOOT RT COMPLETE EXAM: XR FOOT RT COMPLETE CLINICAL HISTORY: F/U 5TH METATARSAL FX. TECHNIQUE: 2D digital imaging was performed of the right foot. Three images were obtained. AP, obl ique and lateral views were obtained. COMPARISON: CR XR FOOT RT COMPLETE from 10/21/2023 FINDINGS: BONES: There is a stable alignment of the 5th metatarsal fracture. No new fractures present. No bon y destructive lesion is seen. There is a moderate-sized plantar calcaneal spur. JOINTS: No dislocation present. There are degenerative changes seen at the 1st metatarsophalangeal diya int with joint space narrowing and a small spur on the dorsal aspect of the 1st metatarsal head. SOFT TISSUE: There is persistent soft tissue swelling adjacent to the 5th metatarsophalangeal joint. IMPRESSION: Stable alignment of the 5th metatarsal fracture. DATA REPOSITORY: RADIATION DOSE DELIVERED:
== END 2023-12-02 09:08 | disposition home or self-care (01) ==
LOC: DIORS 09:08
PROVIDERS: PCP Family Medicine; Referring Provider Family Medicine; Visit Provider Physician Assistant
DX: S92.351D Displaced fracture of fifth metatarsal bone, right foot, subsequent encounter for fracture with routine healing (principal); X58.XXXD Exposure to other specified factors, subsequent encounter
CPT/HCPCS: 73630

== ENCOUNTER 2023-12-28 15:14 | Outpatient (REF) | payer BC, SELFPAY ==
[2023-12-28 12:53] LABS: COMMENT (LAB VIEW ONLY) 87.46 mg/dL; Microalb ug/mg Crea 10.1 ug/mg Cr
== END 2023-12-28 15:15 | disposition home or self-care (01) ==
LOC: LBN 15:14
PROVIDERS: PCP Family Medicine; Referring Provider Family Medicine; Visit Provider Family Medicine
DX: E11.9 Type 2 diabetes mellitus without complications (principal)
CPT/HCPCS: 82043; 82570

== ENCOUNTER 2024-01-30 15:54 | Outpatient (CLI) | payer OTHER, SELFPAY ==
--- NOTE | 2024-01-30 09:45 | DI.RAD_ITS ---
Exam(s) XR FOOT RT COMPLETE EXAM: XR FOOT RT COMPLETE CLINICAL HISTORY: fx R foot. TECHNIQUE: 2D digital imaging was performed of the right foot. Three images were obtained. AP, obl ique and lateral views were obtained. COMPARISON: CR XR FOOT RT COMPLETE from 12/02/2023 FINDINGS: BONES: There has been no change in alignment of the fracture involving the 5th metatarsal bone. The fracture line is still visualized. No bony destructive lesion is seen. There is a moderate size plan tar calcaneal spur. JOINTS: No dislocation present. Degenerative changes are seen in the foot particularly at the 1st MTP joint. SOFT TISSUE: There is soft tissue swelling lateral to the 5th metatarsophalangeal joint. No radiopaq ue foreign body is identified. IMPRESSION: Stable appearance of the right 5th metatarsal fracture. DATA REPOSITORY: RADIATION DOSE DELIVERED:
== END 2024-01-30 15:55 | disposition home or self-care (01) ==
LOC: DIORS 15:59
PROVIDERS: PCP Family Medicine; Visit Provider Physician Assistant
DX: S92.351D Displaced fracture of fifth metatarsal bone, right foot, subsequent encounter for fracture with routine healing (principal); X58.XXXD Exposure to other specified factors, subsequent encounter
CPT/HCPCS: 73630

== ENCOUNTER 2024-08-01 08:09 | Outpatient (CLI) | payer BC, SELFPAY ==
[2024-08-01 12:28] LABS: HCT 45.6 % (40.0-50.0); MCH 30.2 pg (27.0-33.0); MCHC 32.9 % (32.0-36.0); MCV 92 fL (80-95); MPV 10.3 fL (8.0-11.0); Platelet Count 245 10^3/uL (130-400); RBC 4.96 10^6/uL (4.36-5.78); RDW 13.2 % (11.8-14.1); RDW-SD 44.9 fL; WBC 6.79 10^3/uL (4.4-10.8)
[2024-08-01 12:34] LABS: Estimated GFR 81.47 (mL/min/1.73m2); Potassium 4.3 mmol/L (3.5-5.1)
== END 2024-08-01 08:10 | disposition home or self-care (01) ==
LOC: LOS 08:09
PROVIDERS: PCP Family Medicine; Visit Provider Family Medicine
DX: I10 Essential (primary) hypertension (principal); R53.83 Other fatigue; E11.51 Type 2 diabetes mellitus with diabetic peripheral angiopathy without gangrene; Z23 Encounter for immunization; I70.209 Unspecified atherosclerosis of native arteries of extremities, unspecified extremity; Z00.00 Encounter for general adult medical examination without abnormal findings
CPT/HCPCS: 36415; 85027; 82565; 84132

== ENCOUNTER 2024-09-26 02:35 | Outpatient (CLI) | payer BC, SELFPAY ==
[2024-09-26 10:32] LABS: Hemoglobin A1C 5.9 % (<5.7)
== END 2024-09-26 02:36 | disposition home or self-care (01) ==
PROVIDERS: PCP Family Medicine; Visit Provider Family Medicine
DX: E11.51 Type 2 diabetes mellitus with diabetic peripheral angiopathy without gangrene (principal); I70.209 Unspecified atherosclerosis of native arteries of extremities, unspecified extremity
CPT/HCPCS: 36415; 83036

== ENCOUNTER 2025-01-31 08:36 | Outpatient (REF) | payer BC, SELFPAY ==
[2025-01-31 14:21] LABS: COMMENT (LAB VIEW ONLY) 268.16 mg/dL; Microalb ug/mg Crea 5.7 ug/mg Cr
== END 2025-01-31 08:37 | disposition home or self-care (01) ==
LOC: LBN 08:36
PROVIDERS: PCP Family Medicine; Visit Provider Family Medicine
DX: E11.9 Type 2 diabetes mellitus without complications (principal)
CPT/HCPCS: 82043; 82570

== ENCOUNTER 2025-08-13 08:55 | Outpatient (CLI) | payer BC, SELFPAY ==
[2025-08-13 14:16] LABS: Estimated GFR 95.21 (mL/min/1.73m2); Potassium 4.1 mmol/L (3.5-5.1)
== END 2025-08-13 08:56 | disposition home or self-care (01) ==
PROVIDERS: PCP Family Medicine; Visit Provider Family Medicine
DX: I10 Essential (primary) hypertension (principal); E11.8 Type 2 diabetes mellitus with unspecified complications; E11.65 Type 2 diabetes mellitus with hyperglycemia
CPT/HCPCS: 36415; 82565; 84132